=== PATIENT | male | born 1950 | race Caucasian/White ===

== ENCOUNTER 2016-10-02 15:28 | Outpatient (CLI) | payer OTHER ==
--- NOTE | 2016-10-03 12:00 | XRAY Report ---
THREE-VIEW RIGHT SHOULDER: 10/02/2016 CLINICAL INDICATION: Right arm pain. FINDINGS: Internal and external rotational views and a scapular Y view of the right shoulder demonst rate no evidence of acute fracture or dislocation. Degenerative changes are noted. There is calcifi cation in the expected location of the distal supraspinatus tendon, compatible with calcific tendinit is. No radiopaque foreign body is seen in the soft tissues. IMPRESSION: OSTEOARTHRITIS AND LIKELY CALCIFIC TENDINITIS. JOB #: [id number] EXT JOB #:[id number]
--- NOTE | 2016-10-03 12:01 | XRAY Report ---
TWO-VIEW RIGHT HUMERUS: 10/02/2016 CLINICAL INDICATION: Right arm pain. FINDINGS: Frontal and lateral views of the right humerus demonstrate no evidence of fracture. There is an exostosis arising from the distal humeral shaft, measuring 1.5 cm. No radiopaque foreign body is seen in the soft tissues. IMPRESSION: A 1.5 CM EXOSTOSIS ARISING FROM THE MEDIAL HUMERAL SHAFT DISTALLY. JOB #: [id number] EXT JOB #:[id number]
== END 2016-10-02 15:29 | disposition home or self-care (01) ==
LOC: DI.S 15:28
PROVIDERS: ATTEND Internal Medicine
DX: M19.011 Primary osteoarthritis, right shoulder (principal); M89.9 Disorder of bone, unspecified

== ENCOUNTER 2017-07-24 08:00 | Outpatient (CLI) | payer OTHER ==
[2017-07-25 10:57] LABS: CREATININE 1.1 mg/dL (0.6-1.2)
== END 2017-07-24 08:01 | disposition home or self-care (01) ==
LOC: LAB.F 08:00
PROVIDERS: ATTEND Internal Medicine
DX: N28.9 Disorder of kidney and ureter, unspecified (principal)
CPT/HCPCS: 36415; 80048

== ENCOUNTER 2018-01-09 09:54 | Outpatient (CLI) | payer OTHER ==
--- NOTE | 2018-01-09 16:13 | MRI Report ---
Reason: SHOULDER JOINT PAIN, RIGHT Procedure Date: 01/09/2018 Accession Number: [id number] / [id number] Procedure: MRI - Shoulder RT W/O CPT Code: FULL RESULT: EXAM: RIGHT SHOULDER MRI WITHOUT CONTRAST EXAM DATE: 01/09/2018 11:36 AM. CLINICAL HISTORY: Shoulder joint pain, right. COMPARISON: None. TECHNIQUE: Multiplanar, multisequence T1-weighted and fluid-sensitive sequences of the shoulder without contrast. Other: None. FINDINGS: Acromioclavicular Region: The acromion is type II unipartite. AC joint is moderately osteoarthritic. The coracoacromial and coracoclavicular ligaments are intact. Trace amount of bursal fluid. Glenohumeral Region: No subluxation. No effusion or loose bodies. The articular cartilage is unremarkable. The glenohumeral ligaments and joint capsule are unremarkable. Bone Marrow: No fracture, marrow edema or bone lesions. Labrum: The labrum is unremarkable on this nonarthrographic study. Musculature/Rotator Cuff: Some focal tendinopathy distal anterior supraspinatus fibers without focal fluid-filled gap. Thickening and increased T2 signal also seen in the subscapularis and to lesser extent the remainder of the central and posterior aspect of the supraspinatus. Infraspinatus shows mild tendinopathy. Teres minor is normal. Biceps Tendon: Long head biceps tendon is intact, there is some increased T2 signal in the central aspect (type I signal change), no tear. Other: Small focal multilocular cystic structure seen in the subcoracoid bursa measuring about 1 cm. IMPRESSION: 1. AC joint is moderately osteoarthritic. There is some bursal fluid present. Type II unipartite undersurface osseous acromion. 2. Focal tendinopathy distal anterior supraspinatus, no full-thickness or partial-thickness tears. Some tendinitis also seen in the subscapularis and mild tendinopathy in the infraspinatus. 3. Some type I signal changes seen in the intra-articular portion of long head of biceps tendon. No vertical split or full-thickness tears. 4. Small cystic change seen in the subcoracoid bursa thought to be a ganglion rather than a paralabral cyst. No discrete labral tears are noted. [facility] MUSCULOSKE[facility] SECTION
--- NOTE | 2018-01-10 19:14 | MRI Report ---
Reason: DISLOCATION OF LEFT ACROMIOCLAVICULAR JOINT Procedure Date: 01/09/2018 Accession Number: [id number] / [id number] Procedure: MRI - Shoulder LT W/O CPT Code: FULL RESULT: EXAM: LEFT SHOULDER MRI WITHOUT CONTRAST EXAM DATE: 01/09/2018 12:08 PM. CLINICAL HISTORY: Dislocation of left acromioclavicular joint. COMPARISON: XR SHOULDER LEFT 2 + VW 07/21/2017 6:29 PM. XR SHOULDER LEFT 2 + VW 07/21/2017 6:18 PM. TECHNIQUE: Multiplanar, multisequence T1-weighted and fluid-sensitive sequences of the shoulder without contrast. Other: None. FINDINGS: Acromioclavicular Region: The acromion is type II. Chela classification type II acromioclavicular joint separation with widening of the acromioclavicular joint, superior clavicle subluxation to the level of the mid acromion 1.9 cm coracoclavicular distance. Negative for disruption of coracoclavicular ligament. Intact coracoacromial ligament. Mild increased joint fluid acromioclavicular joint. Small fluid collection subacromial subdeltoid bursa. Glenohumeral Region: No subluxation. No effusion or loose bodies. The articular cartilage is unremarkable. The glenohumeral ligaments and joint capsule are unremarkable. Small fluid collection. Bone Marrow: Subcortical cystic degenerative changes posterior aspect greater tuberosity. Labrum: Partial tear anterior inferior glenoid labrum (image 11 series 401). Intermediate signal superior labrum coronal oblique fat saturation proton density sequence indeterminate for a superior labrum tear. Probable superior labrum degeneration. Musculature/Rotator Cuff: Negative for rotator cuff atrophy or edema. Thickening and intermediate signal distal supraspinatus tendon consistent with supraspinatus tendinitis. Intermediate signal and thickening undersurface of the distal anterior infraspinatus tendon and supraspinatus infraspinatus interval consistent with tendinosis. Biceps Tendon: The long head of the biceps tendon and biceps noreen are intact. Other: The subcutaneous tissues are unremarkable. IMPRESSION: 1. Houlton classification type II acromioclavicular joint separation with upward subluxation clavicle to the mid acromion, widening of the acromioclavicular joint, acromioclavicular joint capsular disruption with small fluid collection and intact coracoclavicular ligament. 2. Negative for fluid signal rotator cuff tear. 3. Distal anterior supraspinatus tendinitis and distal anterior infraspinatus tendinosis. 4. Partial tear anterior inferior glenoid labrum. 5. Probable superior glenoid labrum degeneration. [facility]CULOSKELET[facility]OLOG[facility] SECTION
== END 2018-01-09 09:55 | disposition home or self-care (01) ==
LOC: DI 09:54
PROVIDERS: ATTEND Orthopaedic Surgery
DX: S43.122A Dislocation of left acromioclavicular joint, 100%-200% displacement, initial encounter (principal); S43.492A Other sprain of left shoulder joint, initial encounter; M19.011 Primary osteoarthritis, right shoulder; M75.81 Other shoulder lesions, right shoulder; M67.813 Other specified disorders of tendon, right shoulder